=== PATIENT | female | born 1970 | race African-American/Black ===

== ENCOUNTER 2019-09-07 15:04 | Emergency (ER) | payer BC ==
[2019-09-07 15:13] VITALS: BP 143/82; PULSE 88; TEMP 98.2; BMI 39.9
--- NOTE | 2019-09-07 15:13 | PDOC ---
Rapid Medical Evaluation Chief Complaint: Pain, Acute Time Seen by Provider: 09/07/19 15:09 Medical Evaluation: 09/07/19 15:10 I have performed a brief in-person evaluation of this patient. The patient presents with a chief complaint of: pain to medial-dorsal aspect of right foot x 5 days w/o trauma. 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 Discharge Disposition - Diagnosis Right foot pain - Discharge Dispostion Condition at time of disposition: Stable - Referrals - Patient Instructions - Post Discharge Activity
--- NOTE | 2019-09-07 15:52 | PDOC ---
History of Present Illness - General Chief Complaint: Pain, Acute Stated Complaint: RT FOOT PAIN Time Seen by Provider: 09/07/19 15:09 History Source: Patient Exam Limitations: No Limitations Past History - Travel Traveled outside of the country in the last 30 days: No Close contact w/someone who was outside of country & ill: No - Past Medical History Allergies/Adverse Reactions: Allergies Allergy/AdvReac Type Severity Reaction Status Date / Time No Known Allergies Allergy Verified 09/07/19 15:13 Home Medications: Ambulatory Orders Methylprednisolone [Medrol Dose Juan] 4 mg PO ASDIR #21 tablet 09/07/19 COPD: No - Immunization History Immunization Up to Date: Yes - Psycho Social/Smoking Cessation Hx Smoking History: Former smoker Have you smoked in the past 12 months: Yes If you are a former smoker, when did you quit?: NOVEMBER 2018 Information on smoking cessation initiated: No Hx Alcohol Use: No Drug/Substance Use Hx: No Review of Systems - Review of Systems Able to Perform ROS?: Yes Comments:: 09/07/19 15:46 CONSTITUTIONAL: Absent: fever, chills, diaphoresis, generalized weakness, malaise, loss of appetite MUSCULOSKELETAL: Present: Right foot pain absent: myalgia, joint swelling SKIN: Absent: rash, itching, pallor NEUROLOGIC: Absent: headache, focal weakness or paresthesias, dizziness, unsteady gait, seizure, mental status changes, bladder or bowel incontinence PSYCHIATRIC: Absent: anxiety, depression, suicidal or homicidal ideation, hallucinations. Is the patient limited Maltese proficient: No *Physical Exam - Vital Signs Last Vital Signs Temp Pulse Resp BP Pulse Ox 98.2 F 88 19 143/82 98 09/07/19 15:09 09/07/19 15:09 09/07/19 15:09 09/07/19 15:09 09/07/19 15:09 - Physical Exam 09/07/19 15:50 GENERAL: The patient is awake, alert, and fully oriented, in no acute distress. HEAD: Normal with no signs of trauma. EYES: Pupils equal, round and reactive to light, extraocular movements intact, sclera anicteric, conjunctiva clear. EXTREMITIES: Patient with full range of motion of the right foot. Pain with inversion to the dorsal R foot. Strength intact of the feet bilaterally. Normal range of motion, no edema. NEUROLOGICAL: Normal speech, normal gait. PSYCH: Normal mood, normal affect. SKIN: Warm, Dry, normal turgor, no rashes or lesions noted. Medical Decision Making - Medical Decision Making 09/07/19 15:52 Patient is a 48-year-old female past medical history of arthritis, who presents to the ER with 5 days of right foot pain. She denies trauma to the foot or falling. She states that the pain is worse when walking. She states that wearing a shoe helps her pain. Denies falls, weakness and numbness to the affected extremity, rashes. A/P: Foot arthritis. On exam patient with no point tenderness however pain with inversion of the right foot. X-ray shows extensive arthritis in the right foot. Also questionable bone cyst within the navicular as read by myself. We will treat with steroid pack as patient has tried Motrin at home with little relief of her symptoms. Discharge home with orthopedic consult I discussed the physical exam findings, ancillary test results and final diagnoses with the patient. I answered all of the patient's questions. The patient was satisfied with the care received and felt comfortable with the discharge plan and treatment plan. The Patient agrees to follow up with the primary care physician/specialist within 24-72 hours. Return precautions were given. Discharge - Discharge Information Problems reviewed: Yes Clinical Impression/Diagnosis: Right foot pain, Arthritis Condition: Stable Disposition: HOME - Admission No - Additional Discharge Information Prescriptions: Methylprednisolone [Medrol Dose Juan] 4 mg PO ASDIR #21 tablet - Follow up/Referral Referrals: Grzegorz Schultz MD [Staff Physician] - - Patient Discharge Instructions Patient Printed Discharge Instructions: DI for Osteoarthritis Additional Instructions: You have right foot pain most likely caused by arthritis. Please take this Medrol Dosepak as prescribed. Hold the Motrin until you stop taking the steroids. You may apply an Bernardo wrap to the area to help with pain. Use warm compresses. Please follow-up with your orthopedic surgeon this week for further evaluation and management of your symptoms Return to the ER for worsening pain, inability to walk, numbness to the area or if you have any changes in your symptoms. - Post Discharge Activity Work/Back to School Note: Back to Work
== END 2019-09-07 16:08 | disposition home or self-care (01) ==
LOC: JERFT 15:04
DX: M13.871 Other specified arthritis, right ankle and foot (principal)
CPT/HCPCS: 73630-TC-RT-FY; 99282-25

== ENCOUNTER 2019-09-21 12:37 | Emergency (ER) | payer BC ==
[2019-09-21 12:43] VITALS: BP 123/75; PULSE 82; TEMP 98; BMI 39.9
--- NOTE | 2019-09-21 12:55 | PDOC ---
History of Present Illness - General Chief Complaint: Pain Stated Complaint: LT ARM PAIN Time Seen by Provider: 09/21/19 12:52 - History of Present Illness Initial Comments: 09/21/19 12:52 CHIEF COMPLAINT: L arm pain HISTORY OF PRESENT ILLNESS: 48 yo F with hx of arthritis presents to [facility] with pain to L arm since yesterday. Patient c/o of pain with flexion and extension of left arm that began in the middle of the night after carrying her "chunky" granddaughter around. She reports the arm felt "like it was stuck straight" early this morning and since then has loosened up and she can now bend the arm but still feels pain. Patient denies any trauma or fall. No recent travel or sick contacts. PAST MEDICAL HISTORY: arthritis FAMILY HISTORY: Denies SOCIAL HISTORY: Denies tobacco, alcohol, illicit drug use. SURGICAL HISTORY: Denies ALLERGIES: No known drug allergies REVIEW OF SYSTEMS General/Constitutional: Denies fever or chills. Denies weakness, weight change. HEENT: Denies change in vision. Denies ear pain or discharge. Denies sore throat. Cardiovascular: Denies chest pain or shortness of breath. Respiratory: Denies cough, wheezing, or hemoptysis. Gastrointestinal: Denies nausea, vomiting, diarrhea or constipation. Denies rectal bleeding. Genitourinary: Denies dysuria, frequency, or change in urination. Musculoskeletal: L arm pain. Denies joint or muscle swelling or pain. Denies neck or back pain. Skin and breasts: Denies rash or easy bruising. Neurologic: Denies headache, vertigo, loss of consciousness, or loss of sensation. Psychiatric: Denies depression or anxiety. PHYSICAL EXAM General Appearance: Well-appearing, appropriately dressed. No apparent distress , no intoxication. HEENT: EOMI, PERRLA, normal ENT inspection, normal voice, TMs normal, pharynx normal. No conjunctival pallor. No photophobia, scleral icterus. Neck: Supple. Trachea midline. No tenderness, rigidity, carotid bruit, stridor , lymphadenopathy, or thyromegaly. Respiratory/Chest: Lungs CTAB. No shortness of breath, chest tenderness, respiratory distress, accessory muscle use. No crackles, rales, rhonchi, stridor , wheezing, dullness Cardiovascular: RRR. S1, S2. No JVD, murmur, bradycardia, tachycardia. Vascular Pulses: Dorsalis-Pedis (R): 2+, Dorsalis-Pedis (L): 2+ Gastrointestinal/Abdominal: Normal bowel sounds. Abdomen soft, non-distended. No tenderness or rebound tenderness. No organomegaly, pulsatile mass, guarding , hernia, hepatomegaly, splenomegaly. Lymphatic: No adenopathy, tenderness. Musculoskeletal/Extremities: TTP of distal L bicep. Full ROM to L elbow and shoulder. FROM of all extremities, normal capillary refill. Pelvis Stable. No CVA tenderness. No tenderness to extremities, pedal edema, swelling, erythema or deformity. Integumentary: Appropriate color, dry, warm. 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 Fully oriented, alert. Appropriate mood/affect. Motor strength 5/5. No appreciable EOM palsy, facial droop or sensory deficit. Past History - Past Medical History Allergies/Adverse Reactions: Allergies Allergy/AdvReac Type Severity Reaction Status Date / Time No Known Allergies Allergy Verified 09/21/19 12:43 Home Medications: Ambulatory Orders Methylprednisolone [Medrol Dose Juan] 4 mg PO ASDIR #21 tablet 09/07/19 COPD: No - Immunization History Immunization Up to Date: Yes - Psycho Social/Smoking Cessation Hx Smoking History: Never smoked Have you smoked in the past 12 months: Yes If you are a former smoker, when did you quit?: NOVEMBER 2018 Hx Alcohol Use: No Drug/Substance Use Hx: No *Physical Exam - Vital Signs Last Vital Signs Temp Pulse Resp BP Pulse Ox 98 F 82 18 123/75 99 09/21/19 12:39 09/21/19 12:39 09/21/19 12:39 09/21/19 12:39 09/21/19 12:39 Medical Decision Making - Medical Decision Making 09/21/19 13:09 48 yo F with hx of arthritis presents to [facility] with pain to L arm since yesterday. Patient reports that she never picked up methylprednisone that was sent to her pharmacy from last visit. Rx called into patient's requested pharmacy. Advised patient to take medication as prescribed and follow up with ortho within the next week. Advised patient of signs and symptoms for return to ED. Patient verbalized understanding and agrees to plan. Discharge - Discharge Information Problems reviewed: Yes Clinical Impression/Diagnosis: Arthritis Condition: Stable Disposition: HOME - Admission No - Follow up/Referral Referrals: Victor M Owens DO [Staff Physician] - - Patient Discharge Instructions Patient Printed Discharge Instructions: DI for Muscle Strain Additional Instructions: Please take medications as prescribed. Follow up with orthopedics if symptoms persist past 1 week. If you develop any new or worsening symptoms, please return to the ER. - Post Discharge Activity
== END 2019-09-21 13:48 | disposition home or self-care (01) ==
LOC: JERFT 12:37
DX: M13.88 Other specified arthritis, other site (principal)
CPT/HCPCS: 99281-25